=== PATIENT | female | born 1955 | race Caucasian/White ===

== ENCOUNTER 2016-11-19 22:19 | Inpatient (IN) | payer BC ==
--- NOTE | ~2016-11-19 | HP ---
History And Physical [address] [address] NAME: RUBIO CLARK : 57 STATUS : ADM IN PAT#: [id number] AGE: 61 ADM/REG DATE : 11/19/16 MR#: [id number] REPORT SERV DATE: 11/20/16 DICTATED BY: CANELO HERRMANN DATE: 11/20/16 REPORT STATUS : Draft TRANSCRIBED BY: MODL DATE: 11/20/16 DATE OF ADMISSION: 11/19/2016 CHIEF COMPLAINT: A 61-year-old female presenting with increasing shortness of breath. HISTORY OF PRESENT ILLNESS: The patient's history was obtained through careful interview with the patient, coupled with review of [facility] medical records. The patient states that for about five days she has had progressive severe shortness of breath characterized by dyspnea on exertion and a prominent wheeze. She has developed a cough productive of a yellow and brown sputum that is very thick. She describes chest discomfort that came on tonight, pleuritic-like sharp discomfort and aching at the base of her lungs bilaterally, worsened by coughing, 7/10 in severity, associated with anxiety. She has had subjective fevers and chills for about three days. At nighttime, she has drenching night sweats. She also believes her Crohn disease has been poorly controlled for several days. She has had some intermittent diarrhea some "severe" lower quadrant abdominal cramping 8-9/10 in severity, although all of this pain and diarrhea seemed to subside on the day leading up to this admission. No nausea or vomiting at this time. REVIEW OF SYSTEMS: Otherwise, a 14-point review of systems was obtained and was negative. PAST MEDICAL HISTORY: 1. COPD, but not on chronic oxygen. 2. Crohn disease. 3. Rheumatoid arthritis? 4. Fibromyalgia, on chronic pain management. 5. Seizure disorder. 6. Obstructive sleep apnea, but not on CPAP. 7. "A leaky valve.". PAST SURGICAL HISTORY: 1. Cervical spine surgery. 2. Lumbar spine surgery. 3. Hysterectomy. 4. Hemorrhoidectomy. ALLERGIES: 1. NONSTEROIDAL ANTI-INFLAMMATORY DRUGS. 2. SULFA. History And Physical [address] [address] NAME: RUBIO CLARK : 57 STATUS : ADM IN PAT#: [id number] AGE: 61 ADM/REG DATE : 11/19/16 MR#: [id number] REPORT SERV DATE: 11/20/16 DICTATED BY: CANELO HERRMANN DATE: 11/20/16 REPORT STATUS : Draft TRANSCRIBED BY: PELON DATE: 11/20/16 3. HALDOL. 4. CODEINE. SOCIAL HISTORY: The patient is a smoker. Does not drink alcohol. She has lived in [place], [place], but recently has been living with her son and family in [place], [place]. She is disabled. Single. FAMILY HISTORY: Coronary artery disease. CURRENT MEDICATIONS: Include albuterol inhaler, vitamin C, vitamin D, fentanyl patch, Neurontin 400 mg p.o. t.i.d., Robaxin 500 mg p.o. b.i.d., multivitamin daily, Percocet p.r.n., promethazine p.r.n., vitamin E, Klonopin p.r.n., and antacid [id number]. PHYSICAL EXAMINATION: VITAL SIGNS: Temperature 98.1; pulse 113; blood pressure 144/83; respiratory rate 27; and O2 saturation 86% on room air, 94% on 4 liters nasal cannula. GENERAL: An ill-appearing female, in evidence of distress secondary to shortness of breath and cough. HEENT: Pupils are equal, round, and reactive to light. No conjunctival pallor. No scleral icterus. Nares are patent. Oropharynx is clear of obstruction. Moist mucous membranes. NECK: Trachea midline. No thyromegaly. LYMPH: No cervical lymphadenopathy. No supraclavicular lymphadenopathy. RESPIRATORY: Surprisingly on exam, the patient has some fine dry crackles throughout entire lung exam, which reminds me of patient with pulmonary fibrosis. There are scattered expiratory wheezes and some underlying rhonchi as well. I do not appreciate wet rales or wet crackles, but only a dryness it seems. No dullness to percussion to suggest effusions. No focal egophony. The patient has a quite labored respiratory effort. CARDIOVASCULAR: Tachycardic. Regular rhythm. No murmurs, rubs, or gallops. No current extremity edema is appreciated. ABDOMEN: Soft, nontender, and nondistended. Normal bowel sounds auscultated throughout. No hepatosplenomegaly. DERMATOLOGIC: Warm and dry extremities. No pallor. No cyanosis. PSYCHIATRIC: Normal affect. Good mood. Alert and oriented x3. LABORATORY DATA: White blood cell count 16, hemoglobin 14, hematocrit 38, and platelets 284. Sodium 141, potassium 2.9, chloride 104, bicarb 25, BUN 15, creatinine 0.73, and glucose 147. Troponin negative. INR 1.2. ABG demonstrates pH 7.49, a PaCO2 of 33, a PaO2 of 65, and a bicarb of 25 on 4 liters nasal cannula. STUDIES: 1. Chest x-ray by my own evaluation shows COPD changes, but nothing acute. 2. EKG by my own evaluation shows sinus tachycardia. ASSESSMENT AND PLAN: 1. Hypoxic respiratory failure. Provide supportive care. 2. Chronic obstructive pulmonary disease exacerbation. Place on IV Solu-Medrol, Duo nebulizers, IV antibiotics. History And Physical [address] [address] NAME: RUBIO CLARK : 57 STATUS : ADM IN [facility]#: [id number] AGE: 61 ADM/REG DATE : 11/19/16 MR#: [id number] REPORT SERV DATE: 11/20/16 DICTATED BY: CANELO HERRMANN DATE: 11/20/16 REPORT STATUS : Draft TRANSCRIBED BY: PELON DATE: 11/20/16 3. Systemic inflammatory response syndrome, possible underlying sepsis? White blood cell count of 16, tachycardia and tachypnea. Check blood cultures. Check sputum culture. Start empiric IV antibiotics to cover pneumonia. 4. Fibrosis by exam. Check a CT scan of the chest to help define. 5. Hypokalemia. Check potassium and magnesium, replace and check telemetry. 6. Crohn disease. KPL/MODL Canelo Herrmann M.D. / [id number] CC: Emile Hastings GAGAN C
--- NOTE | ~2016-11-19 | DS ---
Discharge Summary [address] [place]. [address] NAME: RUBIO CLARK : 57 STATUS : DIS IN PAT#: [id number] AGE: 61 ADM/REG DATE : 11/19/16 MR#: [id number] REPORT SERV DATE: 11/25/16 DICTATED BY: BING JAMES DATE: 11/24/16 REPORT STATUS : Draft TRANSCRIBED BY: PELON DATE: 11/24/16 ADMISSION DATE: 11/19/2016 DISCHARGE DATE: 11/24/2016 DIAGNOSES: 1. Hypoxic respiratory failure. 2. Pneumonia. 3. Chronic obstructive pulmonary disease exacerbation. 4. Systemic inflammatory response syndrome. 5. Tobacco abuse. Chronic. 6. History of Crohn's. FOLLOWUP: 1. The patient should follow up with the primary care physician in one to two weeks. 2. The patient should quit tobacco abuse. DISCHARGE MEDICATIONS: Cholecalciferol 1000 units p.o. daily, home dose of Duragesic 12 mcg per hour topical patch q.72 hours per prescriber, gabapentin 400 mg p.o. t.i.d., multivitamin p.o. daily, Flonase one spray in each nostril b.i.d. for seven days, Levaquin 750 mg p.o. daily for four days, Klonopin 1 mg p.o. b.i.d., prednisone 20 mg p.o. q.a.m. for four days, Percocet 10/325 one tab p.o. four times a day p.r.n. per prescriber, Phenergan 25 mg p.o. b.i.d. p.r.n., vitamin E p.o. daily, vitamin C p.o. daily, albuterol MDI two puffs inhaled every four hours, Symbicort 160/4.5 two puffs inhaled b.i.d., Spiriva Respimat two puffs inhaled daily, and probiotic p.o. daily. HOSPITAL COURSE: Please see H and P dictated by Dr. Travis Reynolds. This is a 61-year-old female with a past medical history of COPD and Crohn's and fibromyalgia, presented with a chief complaint of shortness of breath, dyspnea on exertion with yellowish to brownish productive cough, achiness in bilateral lung osborne. She was admitted to the Hospitalist Service for hypoxic respiratory failure, chronic obstructive pulmonary disease exacerbation, and findings of pneumonia. The patient was placed on antibiotics. Blood cultures were no growth to date at the time of discharge. The patient continued on steroid as well as bronchodilators with some improvement of her COPD exacerbation. However, at the time of discharge, the patient did require home oxygen. She was educated on home oxygen safety and high flammable and not to have any open flame around home oxygen. The patient states that she understands. The patient was educated on tobacco abuse cessation and states that she has quit. The patient was ready for discharge, and the patient was discharged to home to follow up with her primary care physician as an outpatient. CONCEPCIÓN/PELON Bing James M.D. Discharge Summary [address] [address] NAME: RUBIO CLARK Jeanine : 57 STATUS : DIS IN PAT#: [id number] AGE: 61 ADM/REG DATE : 11/19/16 MR#: [id number] REPORT SERV DATE: 11/25/16 DICTATED BY: BING JAMES DATE: 11/24/16 REPORT STATUS : Draft TRANSCRIBED BY: PELON DATE: 11/24/16 / [id number] CC: Emile Hastings GAGAN C
[2016-11-19 21:16] LABS: BE (BASE EXCESS) 2.1 MEQ/L (0 +/- 2.5); CARBOXYHEMOGLOBIN 1.5 % (0-3); DEVICE NC; HCO3 (ACTUAL BICARBONATE) 24.8 MEQ/L (23-27); HEMOBLOGIN CONTENT 14.4 G/DL (12-16); INSTRUMENT SERIAL # 8087; METHEMOGLOBIN 0.3 % (0-3); O2 CONTENT 18.5 VOL% (18-24); PCO2 (CO2 TENSION) 33 MMHG (35-45); PO2 (O2 TENSION) 65 MMHG (79-93); SAMPLE Arterial; pH 7.49 (7.37-7.43)
[2016-11-19 21:59] LABS: BASOPHILS 0.2 %; BASOPHILS ABSOLUTE 0.03 10/3/uL (0.0-0.16); EOSINOPHILS 0.1 %; EOSINOPHILS ABSOLUTE 0.02 10/3/uL (0.0-0.53); HEMATOCRIT 38.5 % (36.0-48.0); HEMOGLOBIN 13.9 g/dL (12.0-16.0); IMMATURE GRANULOCYTES 0.3 %; IMMATURE GRANULOCYTES ABSOLUTE 0.05 10/3/uL (0.0-0.11); LYMPHOCYTES ABSOLUTE 1.12 10/3/uL (0.67-4.30); MEAN CORPUS HGB CONC 36.1 g/dL (32.0-36.0); MEAN CORPUSCULAR HEMOGLOB 32.1 pg (26.0-34.0); MEAN CORPUSCULAR VOLUME 88.9 fL (80-100); MEAN PLATELET VOLUME 8.7 fL (9.2-13.0); MONOCYTES 3.2 %; MONOCYTES ABSOLUTE 0.51 10/3/uL (0.21-1.20); NEUTROPHILS 89.2 %; NEUTROPHILS ABSOLUTE 14.29 10/3/uL (2.02-8.40); PLATELET COUNT 284 10/3/uL (150-400); RBC DISTRIBUTION WIDTH 13.1 % (12.0-16.0); RED CELL COUNT 4.33 10/6/uL (4.0-5.6)
[2016-11-19 22:00] LABS: MANUAL DIFF NO %
[2016-11-19 22:07] LABS: INTERNATIONAL NORMAL RATI 1.2 UNITS (-); PARTIAL THROMBO TIME 29.1 SEC (22.5-37.2); PROTIME (NOT ORD) 15.2 SEC (12.0-14.5)
[2016-11-19 22:14] LABS: BUN (BLOOD UREA NITROGEN) 15 MG/DL (6-23); CALCIUM, SERUM 9.2 MG/DL (8.5-10.4); CHEST PAIN PROFILE TAT 0 Hrs 19 Mins; CHLORIDE, SERUM 104 MMOL/L (96-112); CO2 (CARBON DIOXIDE) 25 MMOL/L (24-34); CREATININE 0.73 MG/DL (0.55-1.02); GFR AFRICAN AMERICAN 104 ML/MIN (>=60); GFR NON AFRICAN AMERICAN 90 ML/MIN (>=60); GLUCOSE, SERUM 147 MG/DL (60-99); SODIUM, SERUM 141 MMOL/L (135-148); TROPONIN I <0.02 NG/ML (<0.05)
[2016-11-19 22:15] LABS: POTASSIUM, SERUM 2.9 MMOL/L (3.5-5.3)
[2016-11-19] MEDS ORDERED: METHOC500B PO (22:57)
[2016-11-19] MEDS ORDERED: PERCOCET 10/3251 TAB PO (22:57)
[2016-11-19] MEDS ORDERED: NEUR400 PO (22:57)
[2016-11-19] MEDS ORDERED: PR25 PO (22:58)
[2016-11-19] MEDS ORDERED: KLONO1 PO (22:58)
[2016-11-19] MEDS ORDERED: VITAMIN D1000 UNI1 PO (22:59)
[2016-11-19] MEDS ORDERED: THERGRANM PO (22:59)
[2016-11-19] MEDS ORDERED: VITC500 PO (22:59)
[2016-11-19] MEDS ORDERED: VITE1000 PO (22:59)
[2016-11-19] MEDS ORDERED: PROAIR HFA INH (23:00)
[2016-11-19] MEDS ORDERED: OTC ANTACID PO (23:00)
[2016-11-19] MEDS ORDERED: DURA12 TOP (23:01)
[2016-11-20 02:22] LABS: POTASSIUM, SERUM 3.1 MMOL/L (3.5-5.3)
[2016-11-20 05:08] LABS: INFLUENZA A SCREEN NEGATIVE (NEGATIVE); INFLUENZA B SCREEN NEGATIVE (NEGATIVE)
[2016-11-20 06:48] LABS: BASOPHILS 0.1 %; BASOPHILS ABSOLUTE 0.01 10/3/uL (0.0-0.16); EOSINOPHILS 0 %; HEMATOCRIT 36.7 % (36.0-48.0); HEMOGLOBIN 13.1 g/dL (12.0-16.0); IMMATURE GRANULOCYTES 0.2 %; IMMATURE GRANULOCYTES ABSOLUTE 0.03 10/3/uL (0.0-0.11); LYMPHOCYTES 7.7 %; LYMPHOCYTES ABSOLUTE 1.03 10/3/uL (0.67-4.30); MEAN CORPUS HGB CONC 35.7 g/dL (32.0-36.0); MEAN CORPUSCULAR HEMOGLOB 31.6 pg (26.0-34.0); MEAN CORPUSCULAR VOLUME 88.6 fL (80-100); MEAN PLATELET VOLUME 8.9 fL (9.2-13.0); MONOCYTES 1.4 %; MONOCYTES ABSOLUTE 0.19 10/3/uL (0.21-1.20); NEUTROPHILS 90.6 %; NEUTROPHILS ABSOLUTE 12.16 10/3/uL (2.02-8.40); PLATELET COUNT 277 10/3/uL (150-400); RBC DISTRIBUTION WIDTH 13.4 % (12.0-16.0); RED CELL COUNT 4.14 10/6/uL (4.0-5.6); WHITE BLOOD CELLS 13.4 10/3/uL (4.5-10.5)
[2016-11-20 06:49] LABS: MANUAL DIFF NO %
[2016-11-20 06:54] LABS: INTERNATIONAL NORMAL RATI 1.2 UNITS (-); PARTIAL THROMBO TIME 27.5 SEC (22.5-37.2); PROTIME (NOT ORD) 15.4 SEC (12.0-14.5)
[2016-11-20 07:15] LABS: A/G RATIO 0.6 (0.7-1.9); ALKALINE PHOSPHATASE 151 U/L (45-117); BUN (BLOOD UREA NITROGEN) 16 MG/DL (6-23); CALCIUM, SERUM 9.3 MG/DL (8.5-10.4); CHLORIDE, SERUM 106 MMOL/L (96-112); CO2 (CARBON DIOXIDE) 28 MMOL/L (24-34); CREATININE 0.89 MG/DL (0.55-1.02); GFR AFRICAN AMERICAN 82 ML/MIN (>=60); GFR NON AFRICAN AMERICAN 70 ML/MIN (>=60); GLOBULIN 5.2 G/DL (2.5-4.1); GLUCOSE, SERUM 165 MG/DL (60-99); SGPT(ALT) 23 U/L (5-65); SODIUM, SERUM 143 MMOL/L (135-148); TOTAL BILIRUBIN 0.3 MG/DL (0-1.2); TOTAL PROTEIN 8.2 G/DL (6.0-8.5); TROPONIN I <0.02 NG/ML (<0.05); ULTRASENSITIVE TSH 0.146 MCIU/ML (0.358-3.740)
[2016-11-20 07:16] LABS: SGOT(AST) 24 U/L (5-40)
[2016-11-20 10:21] LABS: PROCALCITONIN 16.41 ng/mL (<0.5)
[2016-11-21 05:31] LABS: BASOPHILS 0.1 %; BASOPHILS ABSOLUTE 0.01 10/3/uL (0.0-0.16); EOSINOPHILS 0 %; HEMATOCRIT 35.6 % (36.0-48.0); HEMOGLOBIN 12.1 g/dL (12.0-16.0); IMMATURE GRANULOCYTES 0.3 %; IMMATURE GRANULOCYTES ABSOLUTE 0.05 10/3/uL (0.0-0.11); LYMPHOCYTES 10.8 %; MEAN CORPUSCULAR HEMOGLOB 31.6 pg (26.0-34.0); MEAN PLATELET VOLUME 9.2 fL (9.2-13.0); MONOCYTES 2.6 %; MONOCYTES ABSOLUTE 0.43 10/3/uL (0.21-1.20); NEUTROPHILS 86.2 %; NEUTROPHILS ABSOLUTE 14.45 10/3/uL (2.02-8.40); PLATELET COUNT 293 10/3/uL (150-400); RBC DISTRIBUTION WIDTH 13.5 % (12.0-16.0); RED CELL COUNT 3.83 10/6/uL (4.0-5.6); WHITE BLOOD CELLS 16.7 10/3/uL (4.5-10.5)
[2016-11-21 05:42] LABS: MANUAL DIFF NO %
[2016-11-21 06:20] LABS: BUN (BLOOD UREA NITROGEN) 18 MG/DL (6-23); CALCIUM, SERUM 9.7 MG/DL (8.5-10.4); CHLORIDE, SERUM 102 MMOL/L (96-112); CO2 (CARBON DIOXIDE) 26 MMOL/L (24-34); CREATININE 0.79 MG/DL (0.55-1.02); GFR AFRICAN AMERICAN 94 ML/MIN (>=60); GFR NON AFRICAN AMERICAN 81 ML/MIN (>=60); POTASSIUM, SERUM 4.1 MMOL/L (3.5-5.3); SODIUM, SERUM 138 MMOL/L (135-148)
[2016-11-21 06:23] LABS: GLUCOSE, SERUM 211 MG/DL (60-99)
[2016-11-21 12:11] LABS: PROCALCITONIN 9.09 ng/mL (<0.5)
[2016-11-24] MEDS ORDERED: SYMBICORT 160/41 INH INH (12:21)
[2016-11-24] MEDS ORDERED: SPIRIVA RESPIMAT INH (12:22)
[2016-11-24] MEDS ORDERED: P20 PO (12:23)
[2016-11-24] MEDS ORDERED: LEVAQUIN750 MG PO (12:24)
[2016-11-24] MEDS ORDERED: ROBITUSS23 PO (12:28)
[2016-11-24] MEDS ORDERED: PROBIOTIC PO (12:29)
== END 2016-11-24 18:47 | disposition home or self-care (01) | DRG 189 ==
LOC: ER 22:19 → 5SO 23:07
PROVIDERS: Emergency Medicine; Hospitalist; Internal Medicine
DX: J96.01 Acute respiratory failure with hypoxia (principal); J18.9 Pneumonia, unspecified organism; J44.1 Chronic obstructive pulmonary disease with (acute) exacerbation; K50.90 Crohn's disease, unspecified, without complications; M79.7 Fibromyalgia; G89.29 Other chronic pain; G40.909 Epilepsy, unspecified, not intractable, without status epilepticus; G47.33 Obstructive sleep apnea (adult) (pediatric); Z90.710 Acquired absence of both cervix and uterus; Z79.899 Other long term (current) drug therapy; Z88.2 Allergy status to sulfonamides; Z88.8 Allergy status to other drugs, medicaments and biological substances; Z88.5 Allergy status to narcotic agent; F17.210 Nicotine dependence, cigarettes, uncomplicated; Z98.890 Other specified postprocedural states; Z82.49 Family history of ischemic heart disease and other diseases of the circulatory system
CPT/HCPCS: 36600; 71010; 71250; 80048; 80053; 82805; 83605; 83735; 83880; 84132; 84145; 84443; 84484; 85025; 85610; 85730; 87040; 87070; 87205; 87449; 87804; 93005; 94640; 94644; 96374; 99291; A9270-GY; J0456; J2920